=== PATIENT | female | born 2000 | race Caucasian/White ===

== ENCOUNTER → 2019-10-07 14:13 | Outpatient (CLI) | payer BC, SELFPAY ==
--- NOTE | 2019-10-07 14:18 | US_ITS ---
PROCEDURE: US OB TRANSVAGINAL CLINICAL INDICATION: US OB Dates Evaluate dates COMPARISON: No exams were available for comparison FINDINGS: An intrauterine gestational sac is present with a pole with a crown-rump length of 3.14cm correlating to gestational age of 10weeks 1day. heart tones are present with an FHR of 164bpm. Yolk sac is noted. There is a 2 cm right corpus luteum cyst. There is a small area of decreased echogenicity along the lower uterine segment in the subchorionic region and could represent an area of small subchorionic bleed IMPRESSION: Live IUP at 10 weeks 1 day. Possible small subchorionic bleed inferiorly Estimated due date by Ultrasound is 05/03/2020 Dictated by: Humberto Partida MD 10/07/2019 19:14 Electronically signed by Humberto Partida MD in [place] 10/07/2019 19:14
== END ==
PROVIDERS: Visit Provider Obstetrics & Gynecology
DX: O26.841 Uterine size-date discrepancy, first trimester (principal)
CPT/HCPCS: 76817

== ENCOUNTER → 2019-10-15 15:36 | Outpatient (CLI) | payer BC, SELFPAY ==
[2019-10-15 16:52] LABS: Basophils % 0.1 % (0.1-2.0); Eosinophils # 0.1 K/mm3 (0.0-0.4); Hemoglobin 11.2 g/dL (12.2-16.2); Lymphocytes # 1.8 K/mm3 (0.7-4.5); Lymphocytes % 22.8 % (10-50); Mean Corpuscular HGB Conc 33.9 g/dL (31.8-35.4); Mean Corpuscular Hemoglobin 28.1 pg (27.0-31.2); Mean Corpuscular Volume 82.8 fl (81-99); Mean Platelet Volume 7.5 fl (7.4-10.4); Monocytes # 0.4 K/mm3 (0.1-1.0); Monocytes % 5.2 % (1.7-9.3); Neutrophils # 5.5 K/mm3 (1.8-7.8); Neutrophils % 70.8 % (37.0-80.0); Platelet Count 356 K/mm3 (142-424); Red Blood Count 3.99 M/mm3 (4.20-5.40); Red Cell Distribution Width 16.2 % (11.5-17.5); White Blood Count 7.7 K/mm3 (4.8-10.8)
[2019-10-17 09:21] LABS: Rapid Plasma Reagin Ab Titer Non Reactive (NonRea<1:1)
[2019-10-17 10:13] LABS: HIV Screen 4th Generation wRfx Non Reactive (Non Reactive); Hepatitis B Surface Antigen Negative (Negative); Hepatitis C Antibody <0.1 s/co ratio (0.0-0.9)
[2019-10-18 09:27] LABS: Rubella Antibodies, IgG 1.78 index (Immune >0.99)
[2019-10-19 08:18] LABS: Chlordiazepoxide <0.1 ug/mL (0.1-0.9)
[2019-10-19 09:37] LABS: Acetone Negative % (0.000-0.010); Butalbital <1 ug/mL (1-10); Diazepam <0.1 ug/mL (0.1-0.9); Ethanol Negative % (0.000-0.010); Isopropanol Negative % (0.000-0.010); Pentobarbital <1 ug/mL (1-5)
== END ==
PROVIDERS: Visit Provider Obstetrics & Gynecology
DX: Z34.90 Encounter for supervision of normal pregnancy, unspecified, unspecified trimester (principal)
CPT/HCPCS: 36415; 80306; 85025; 86592; 86703; 86762; 86850; 87340; 87380; G0432

== ENCOUNTER → 2019-11-12 16:54 | Outpatient (CLI) | payer BC, SELFPAY ==
[2019-11-16 07:33] LABS: Neisseria gonorrhoeae, NAA Negative (Negative)
== END ==
PROVIDERS: Visit Provider Obstetrics & Gynecology
DX: Z34.90 Encounter for supervision of normal pregnancy, unspecified, unspecified trimester (principal)
CPT/HCPCS: 87491; 87591

== ENCOUNTER 2019-12-11 23:39 | Emergency (ER) | payer BC, SELFPAY ==
[2019-12-11 23:40] VITALS: BP 120/67; PULSE 92; RESP 16; TEMP 37; O2SAT 99; BMI 39.3
--- NOTE | 2019-12-11 23:56 | PC.NURSE ---
heart tones assessed with Doppler at 157bpm
--- NOTE | 2019-12-12 00:07 | HMH.EDNVD ---
ED Disposition Clinical Impression: Abdominal pain Qualifiers: Abdominal location: right upper quadrant Qualified Code(s): R10.11 - Right upper quadrant pain Qualifiers: Weeks of gestation: 20 weeks Qualified Code(s): Z3A.20 - 20 weeks gestation of Disposition: Home, Self-Care Condition on Discharge: Good Instructions: DI for Acute Abdomen Referrals: Provider,Referral, [Primary Care Provider] - - Critical Care Critical Care Time: No Attestation: On 12/11/19, the high probability of a clinically significant, sudden or life threatening deterioration of the following system(s) required my full and direct attention, intervention and personal management. The time I documented below is in addition to time spent performing reported procedures but includes the following listed in this critical care notation. Medical Decision Making - Medical Records Medical records reviewed: Yes: I reviewed the patient's medical records. - Dimas Inquiry Pt receiving controlled substance: No Vital Signs: 12/11/19 23:40 12/12/19 00:47 12/12/19 01:03 Temperature 98.6 F Temperature Source Oral Pulse Rate [Left Radial] 92 H 96 H 91 H Respiratory Rate 16 18 18 Blood Pressure [Right Arm] 120/67 124/73 123/76 Blood Pressure Mean [Right Arm] 84 90 91 Blood Pressure Source [Right Arm] Automatic Cuff Blood Pressure Position [Right Arm] Sitting 02 Sat by Pulse Oximetry 99 100 99 Oxygen Delivery Method Room Air Room Air Room Air - Lab Data Lab results reviewed: Yes: I reviewed the patient's lab results. Lab Results 12/12/19 00:00: Urine Color Yellow, Urine Appearance Clear, Urine pH 7.0, Ur Specific [place] 1.025, Urine Protein Negative, Urine Glucose (UA) Negative, Urine Ketones Negative, Urine Blood Negative, Urine Nitrate Negative, Urine Bilirubin Negative, Urine Urobilinogen 0.2, Ur Leukocyte Esterase Negative, Urine WBC Occasional, Ur Squamous Epith Cells 3-5, Urine Bacteria 1+ 12/12/19 00:00: WBC 8.2, RBC 3.79 L, Hgb 11.1 L, Hct 32.4 L, MCV 85.6, MCH 29.2, MCHC 34.1, RDW 14.9, Plt Count 410, MPV 7.2 L, Neut % (Auto) 68.1, Lymph % (Auto) 24.5, [place] % (Auto) 6.1, Eos % (Auto) 1.2, Baso % (Auto) 0.1, Neut # (Auto) 5.6, Lymph # (Auto) 2.0, [place] # (Auto) 0.5, Eos # (Auto) 0.1, Baso # (Auto) 0.0, ESR 43 H 12/12/19 00:00: Sodium 136, Potassium 3.7, Chloride 105, Carbon Dioxide 23, Anion Gap 11.7, BUN 9, Creatinine 0.50 L, Estimated Creat Clear 283, Estimated GFR 156, Est GFR ( Amer) 188, Glucose 98, Calcium 9.2, Total Bilirubin 0.3, AST 25, ALT 14, Alkaline Phosphatase 55, C-Reactive Protein 14.2 H, Total Protein 6.3, Albumin 3.3 L, Globulin 3.0, Albumin/Globulin Ratio 1.1, Amylase 62, Lipase 70 12/12/19 00:00: HCG, Quant [id number] H Result diagrams: 12/12/19 00:00 12/12/19 00:00 Orders (Tests/Meds): ED MEDICATIONS Generic Name Dose Route Start Last Admin Trade Name Freq PRN Reason Stop Dose Admin Sodium Chloride 1,000 mls @ 999 mls/hr 12/12/19 00:30 Sod Chlor 0.9% 1000ml Bag IV 12/12/19 01:30 .Q1H1M AYLA Nausea/Vomiting/Diarrhea HPI - General Chief complaint: Abdominal Pain Stated complaint: abd pain Time Seen by Provider: 12/12/19 00:07 Mode of Arrival: EMS Source of Information: Patient, EMS, Medical Record Limitations: No Limitations Description of Symptoms (Recalled from ER Triage Doc. by RN): pt c/o epigastric and RUQ pain after she consumes and food or beverage for about a week. pt was seen by Dr. Montanez for symptoms and was told it was possibly her gallbladder but MD couldnt treat it currently due to . pt also complains of a numbness sensation across her belly when she goes from a laying to sitting position. pt reports tenderness when palpating RUQ and denies any N/V/D at this time - History of Present Illness HPI Narrative: upper abd pain after eating - has had before - pt is about 5 months MD complaint: nausea, abdominal pain Onset (ago): hour(s)
[2019-12-12 00:12] LABS: Microscopic, Urine URINE MICROSCOPIC (MICROSCOPIC)
[2019-12-12 00:13] LABS: Appearance,Urine CLEAR (Clear); Basophils % 0.1 % (0.1-2.0); Bilirubin,Urine Negative (Negative); Blood, Urine Negative (Negative); Color,Urine YELLOW (Yellow); Eosinophils # 0.1 K/mm3 (0.0-0.4); Eosinophils % 1.2 % (0.1-12.0); Glucose,Urine (UA) Negative (Negative); Hematocrit 32.4 % (37.0-47.0); Hemoglobin 11.1 g/dL (12.2-16.2); Ketones,Urine Negative (Negative); Leukocyte Esterase,Urine Negative (Negative); Lymphocytes % 24.5 % (10-50); Mean Corpuscular HGB Conc 34.1 g/dL (31.8-35.4); Mean Corpuscular Hemoglobin 29.2 pg (27.0-31.2); Mean Corpuscular Volume 85.6 fl (81-99); Mean Platelet Volume 7.2 fl (7.4-10.4); Monocytes # 0.5 K/mm3 (0.1-1.0); Monocytes % 6.1 % (1.7-9.3); Neutrophils # 5.6 K/mm3 (1.8-7.8); Neutrophils % 68.1 % (37.0-80.0); Nitrate,Urine Negative (Negative); Platelet Count 410 K/mm3 (142-424); Protein,Urine Negative (Negative); Red Blood Count 3.79 M/mm3 (4.20-5.40); Red Cell Distribution Width 14.9 % (11.5-17.5); Specific Gravity, Urine 1.025 (1.005-1.030); Urobilinogen,Urine 0.2 EU/dl (0.2); White Blood Count 8.2 K/mm3 (4.8-10.8)
[2019-12-12 00:19] LABS: Alanine Aminotransferase 14 U/L (12-78); Albumin Level 3.3 g/dl (3.5-5.0); Albumin/Globulin Ratio 1.1 (1.1-1.8); Alkaline Phosphatase 55 U/L (38-126); Amylase 62 U/L (30-110); Anion Gap 11.7 mEq/L (5-15); Aspartate Amino Transferase 25 U/L (14-36); Bilirubin,Total 0.3 mg/dl (0.2-1.3); Blood Urea Nitrogen 9 mg/dl (7-17); Calcium 9.2 mg/dl (8.4-10.2); Carbon Dioxide 23 mmol/L (22.0-30.0); Chloride 105 mmol/L (98-107); Creatinine Clearance Estimated 283 mL/min (50-200); Estimated Glomerular Filt Rate 156 ml/min (>60); GFR (African American) 188 ML/MIN (>60); Glucose 98 mg/dl (74-100); Lipase 70 U/L (23-300); Potassium 3.7 mmoL/L (3.5-5.1); Sodium 136 mmol/L (136-145); Total Protein,Serum 6.3 g/dl (6.3-8.2)
[2019-12-12 00:24] LABS: Bacteria,Urine 1+ /lpf; C-Reactive Protein 14.2 mg/L (0-4); WBC,Urine Occasional #/hpf (0-3)
[2019-12-12 00:47] VITALS: BP 124/73; PULSE 96; RESP 18; O2SAT 100
[2019-12-12 00:47] LABS: Erythrocyte Sedimentation Rate 43 mm/hr (0-20)
[2019-12-12 01:03] VITALS: BP 123/76; PULSE 91; RESP 18; O2SAT 99
[2019-12-12 01:17] LABS: HCG,Quantitative 10514 mIU/ml (0-5.42)
[2019-12-12 01:50] VITALS: BP 116/73; PULSE 81; RESP 16; TEMP 36.9; O2SAT 97
== END 2019-12-12 01:54 | disposition home or self-care (01) ==
PROVIDERS: Emergency Provider Emergency Medicine
DX: R10.11 Right upper quadrant pain (principal); Z3A.20 20 weeks gestation of pregnancy
CPT/HCPCS: 80053; 81001; 82150; 83690; 84702; 85025; 85651; 86140; 96365; 99283

== ENCOUNTER → 2019-12-17 13:13 | Outpatient (CLI) | payer BC, SELFPAY ==
--- NOTE | 2019-12-17 13:13 | US_ITS ---
PROCEDURE: US OB /MATERNAL DETAIL CLINICAL INDICATION: US OB Complete Anatomy scan COMPARISON: US US OB TRANSVAGINAL from 10/07/2019 FINDINGS: There is a single live fetus present in breech presentation. heart and body motion noted. Cervix is closed and measures 4 cm transabdominal. The placenta is posterior and grade 1. Complete survey performed and was unremarkable on the submitted images as in PACS. No discrete anomalies identified on survey imaging by technologist. Active fetus. Three-vessel cord with satisfactory umbilical cord insertion. 4- chamber heart noted. Survey of brain & ventricles Unremarkable. Face and neck survey unremarkable. Diaphragm and chest views unremarkable. Abdomen: Both kidneys noted and unremarkable. Stomach noted and satisfactory. Spine: Survey of the spine satisfactory with no anomalies identified nor imaged. Both arms and legs noted. Amniotic Fluid: Adequate. Maternal adnexa: No significant findings. Measurements: Average ultrasound age 21weeks 1day. Gestational Age 20weeks 2days Estimated due date by ultrasound age 1204/27/2020. Estimated weight 408g BPD = 21weeks 3days OFD = 20weeks 4days HC = 20weeks 1day AC = 21weeks 4days FL = 21weeks 2days Growth Percentile= 91Percent% Heart Rate = 152bpm Cerebellum = 22weeks Humerus = 21weeks 3days HC/AC is 1.07 CI is 0.83 FL/BPD is 0.7 FL/AC is 0.22 IMPRESSION: Live IUP in breech presentation with an average ultrasound age 21 weeks 1 day. No obvious anomalies. All parameters correlate. Please see above for detail. Dictated by: Humberto Paritda MD 12/18/2019 06:41 Humberto Partida MD in [place] 12/18/2019 06:41
== END ==
PROVIDERS: PCP Obstetrics & Gynecology; Visit Provider Obstetrics & Gynecology
DX: Z36.0 Encounter for antenatal screening for chromosomal anomalies (principal); Z34.90 Encounter for supervision of normal pregnancy, unspecified, unspecified trimester
CPT/HCPCS: 76811

== ENCOUNTER → 2020-02-10 12:32 | Outpatient (CLI) | payer BC, SELFPAY ==
[2020-02-10 12:56] LABS: Glucose,Fasting 94 mg/dl (74-100)
[2020-02-10 14:17] LABS: Glucose 1 Hour 123 mg/dL (74-100)
== END ==
PROVIDERS: Visit Provider Obstetrics & Gynecology
DX: Z34.90 Encounter for supervision of normal pregnancy, unspecified, unspecified trimester (principal)
CPT/HCPCS: 36415; 82951

== ENCOUNTER 2020-03-18 09:55 | Emergency (ER) | payer BC, SELFPAY ==
--- NOTE | 2020-03-18 09:55 | ECG_ITS ---
APPROVED REPORT Exam: Resting ECG HR:113 bpm ECG Measurements Heart Rate 113 AXES MI 138 P 51 QRSd 78 QRS 109 QT 312 T 14 QTc 427 Conclusion Sinus tachycardia Rightward axis Borderline ECG Electronically signed by : Fransisco Godoy, 03/20/2020 19:23:10
[2020-03-18 09:58] VITALS: BP 137/76; PULSE 110; RESP 18; TEMP 36.9; O2SAT 99; BMI 41.3
--- NOTE | 2020-03-18 09:59 | HMH.EDGENADL ---
ED Disposition Clinical Impression: Qualifiers: Weeks of gestation: 33 weeks Qualified Code(s): Z3A.33 - 33 weeks gestation of Disposition: Left Against Medical Advice Condition on Discharge: Fair Time of Disposition: 10:46 - Critical Care Critical Care Time: No Attestation: On , the high probability of a clinically significant, sudden or life threatening deterioration of the following system(s) required my full and direct attention, intervention and personal management. The time I documented below is in addition to time spent performing reported procedures but includes the following listed in this critical care notation. Medical Decision Making - Dimas Inquiry Pt receiving controlled substance: No Vital Signs: 03/18/20 09:58 03/18/20 10:00 03/18/20 10:18 Temperature 98.4 F Temperature Source Oral Pulse Rate [Right Radial] 110 H 126 H 111 H Respiratory Rate 18 Blood Pressure [Right Arm] 137/76 124/77 112/71 Blood Pressure Mean [Right Arm] 96 92 84 Blood Pressure Source [Right Arm] Automatic Cuff Automatic Cuff Automatic Cuff Blood Pressure Position [Right Arm] Sitting Sitting Sitting 02 Sat by Pulse Oximetry 99 98 99 Oxygen Delivery Method Room Air Room Air Room Air 03/18/20 10:30 Temperature Temperature Source Pulse Rate [Right Radial] 123 H Respiratory Rate 28 H Blood Pressure [Right Arm] 110/74 Blood Pressure Mean [Right Arm] 86 Blood Pressure Source [Right Arm] Automatic Cuff Blood Pressure Position [Right Arm] Sitting 02 Sat by Pulse Oximetry 99 Oxygen Delivery Method Room Air Orders (Tests/Meds): ORDERS Category Date Time Status Basic Metabolic Panel Stat Lab 03/18/20 10:07 Ordered Complete Blood Count Auto Diff Stat Lab 03/18/20 10:07 Ordered Troponin I Q3H Lab 03/18/20 13:15 Ordered Troponin I Q3H Lab 03/18/20 16:15 Ordered Troponin I Stat Lab 03/18/20 10:07 Ordered UA [Urinalysis and Microscopic] Stat Lab 03/18/20 10:07 Ordered - ECG Data Tracing #1 Sinus tachycardia, no ST elevation or depression, no ectopy. Normal intervals. ECG initial impression date: 03/18/20 ECG initial impression time: 09:57 Arrhythmias present: sinus tach Medical Decision Narrative: 19yo G1 @ 33wks evaluated for chest pain shortness of breath. Differential diagnosis includes was not limited to: PE, ACS, anxiety, GERD, pneumonia. Patient is apparently a very difficult stick and refused to allow nursing to attempt blood collection any further. Patient states she would rather sign out AMA. Patient's OB called the emergency department to inform us that she was post be seen in the clinic today the patient had already spoke with the OBs office. Nursing called to inform the OBs office the patient was leaving AMA and the patient will be presenting to their office. General Adult HPI - General Stated complaint: SOA, chest pain Time Seen by Provider: 03/18/20 09:59 Mode of Arrival: EMS - History of Present Illness HPI narrative: 19yo G1 @ 33wks presents to the emergency department via EMS secondary to chest pain and shortness of breath. Patient reports has been ongoing for several days now. She reports it was worsened when she stepped outside into the cold weather. She was attempting to walk to the hospital but her pain became so great that she called EMS. She reports similar symptoms approximately 1 month ago and was told they could not find any acute cause. She denies any complications to her . She denies any past medical history prior to . She reports she used to smoke marijuana but stopped after she found out she was . She reports her boyfriend continues to smoke marijuana several times a day. She denies any other drugs or alcohol. She denies radiating pain, nausea or vomiting. She states her whole body feels tingly. - Related Data Home Medications Medication Instructions Recorded Confirmed Vit Calc,Iron,Folic
[2020-03-18 10:00] VITALS: BP 124/77; PULSE 126; O2SAT 98
--- NOTE | 2020-03-18 10:15 | PC.NURSE ---
went in to start her IV pt became upset saying the tourniquet hurt , loosened it started the IV was talking about how bad it hurt , flushed good IV left in place . called lab to come stick for labs
[2020-03-18 10:18] VITALS: BP 112/71; PULSE 111; O2SAT 99
--- NOTE | 2020-03-18 10:26 | PC.NURSE ---
heart tones 156bpm. notified.
--- NOTE | 2020-03-18 10:28 | PC.NURSE ---
Sharmin Shankar from lab came to draw patients blood. Patient refuses blood draw.
[2020-03-18 10:30] VITALS: BP 110/74; PULSE 123; RESP 28; O2SAT 99
--- NOTE | 2020-03-18 10:34 | PC.NURSE ---
pt is requesting to sign out AMA per Carol Leblanc. Both RN and attempted to talk with patient to attempt consent to treat. Patient refused multiple times.
--- NOTE | 2020-03-18 10:38 | PC.NURSE ---
lab staff comes out stating pt refusing blood work, entered room to check on pt, pt is attempting to remove her IV. Pt stating I want to leave . Pt refusing to go to OB for monitoring, pt refusing blood work. ER spoke with pt, pt continues to refuse treatment. while I was in the room with pt, other staff member states Dr. Montanez's office called, stating pt was advised to come to the office for evaluation when she called them earlier today. Notified pt that Dr. Montanez's office has called, pt reports she was supposed to go to Dr. Montanez's office but she didn't have ride to the hospital. Pt continues to refuse treatment. Advised pt that if she wished to leave AMA she should go to Dr. Montanez's office for evaluation, pt states she will. IV removed, AMA formed signed by pt.
[2020-03-18 10:40] VITALS: BP 110/74; PULSE 110; RESP 20; TEMP 36.9; O2SAT 99
--- NOTE | 2020-03-18 10:46 | PC.NURSE ---
Ely from dr hector office called prior to lab coming to stick patient requesting to know what was going on with the pt as pt had called from the ED requesting Dr Montanez come see her. Office stated pt had requested to be seen earlier and had an appointment with them if she could find a ride. Doc office notified she was getting a full workup.
--- NOTE | 2020-03-18 10:48 | PC.NURSE ---
Dr Office updated pt signed out AMA and workup was no longer being done as pt refused all care.
== END 2020-03-18 10:40 | disposition left against medical advice (07) ==
PROVIDERS: Emergency Provider Family Medicine
DX: R07.9 Chest pain, unspecified (principal); Z3A.33 33 weeks gestation of pregnancy
CPT/HCPCS: 93005; 99283

== ENCOUNTER → 2020-04-07 16:47 | Outpatient (CLI) | payer BC, SELFPAY ==
[2020-04-11 00:59] LABS: Neisseria gonorrhoeae, NAA Negative (Negative)
--- NOTE | 2020-04-13 16:15 | SW/DCPLANNER ---
Addendum entered by Celina Warren 04/14/20 10:50: I have contacted this patient and she has stated that she has an appointment with Dr Montanez on Monday. Patient has also stated that she has made an appointment with [facility] [employer] for her appointment on Monday. [facility] in [facility] (Emilie Chavarria) will also be contacting this patient to see if there are any service/begin [facility] program for this patient. Emilie will follow up with me later in the week regarding this patient. Addendum entered by Celina Warren 04/14/20 10:33: I have left a message with [facility] service to return my phone call back regarding this patient and see if assistance can be offered to this patient prior to delivery. I have also reached out to [employer]PS to discuss any advice for services/assistance prior to delivery. CPS has stated to make notes and make sure all is reported at time of delivery for this patient. I will continue to follow up with staff and patient until delivery. Original Note: I was notified from Dr Montanez office regarding concern for this patient. Sury in Dr Archer office stated that patient will generally have transportation to MD appointments but will not have transportation home. Staff have transported this patient home from appointments and patient has also used EMS services for transportation to appointments. I have called this patient today to inform her of services: [facility] [employer] and that this service will transport her to and from appointments but she must call 72 hours in advance. Patient was also agreeable for me to speak with [facility] to see if they can offer this patient any assistance/services. I will follow up with [facility] and Dr Archer office.
== END ==
PROVIDERS: Visit Provider Obstetrics & Gynecology
DX: Z34.90 Encounter for supervision of normal pregnancy, unspecified, unspecified trimester (principal)
CPT/HCPCS: 86403; 87491; 87591

== ENCOUNTER 2020-05-04 09:46 | Inpatient (IN) | payer BC, SELFPAY ==
[2020-05-04 08:46] VITALS: BP 144/89; PULSE 83; RESP 20; TEMP 37; O2SAT 99; BMI 43.4
[2020-05-04 08:58] VITALS: BP 144/89; PULSE 83; RESP 20; TEMP 37; O2SAT 99
[2020-05-04 08:58] LABS: Microscopic, Urine URINE MICROSCOPIC (MICROSCOPIC)
[2020-05-04 09:04] LABS: Appearance,Urine CLEAR (Clear); Bilirubin,Urine Negative (Negative); Blood, Urine 1+ (Negative); Color,Urine YELLOW (Yellow); Glucose,Urine (UA) Negative (Negative); Ketones,Urine TRACE (Negative); Leukocyte Esterase,Urine Negative (Negative); Nitrate,Urine Negative (Negative); PH,Urine 6.5 (5.0-8.5); Protein,Urine 1+ (Negative)
[2020-05-04 09:18] LABS: Amphetamine/Metha Screen,Urine Negative ng/ml (<1000); Barbiturates Screen,Urine Negative ng/ml (<200)
[2020-05-04 09:19] LABS: Benzodiazepines Screen,Urine Negative ng/ml (<200)
[2020-05-04 09:20] LABS: Cannabinoid Screen,Urine Negative ng/ml (<50); Cocaine Screen,Urine Negative ng/ml (<300)
[2020-05-04 09:21] LABS: Methadone Screen,Urine Negative ng/ml (<300)
[2020-05-04 09:22] LABS: Opiate Screen,Urine Negative ng/ml (<300); Phencyclidine Screen,Urine Negative ng/ml (<25)
[2020-05-04 09:34] VITALS: BP 130/84
[2020-05-04 10:26] LABS: Basophils % 0.2 % (0.1-2.0); Eosinophils # 0.1 K/mm3 (0.0-0.4); Eosinophils % 0.7 % (0.1-12.0); Hematocrit 30.4 % (37.0-47.0); Hemoglobin 9.7 g/dL (12.2-16.2); Lymphocytes # 1.8 K/mm3 (0.7-4.5); Lymphocytes % 21.6 % (10-50); Mean Corpuscular HGB Conc 31.9 g/dL (31.8-35.4); Mean Corpuscular Hemoglobin 23.4 pg (27.0-31.2); Mean Corpuscular Volume 73.2 fl (81-99); Mean Platelet Volume 7.1 fl (7.4-10.4); Monocytes # 0.5 K/mm3 (0.1-1.0); Monocytes % 5.2 % (1.7-9.3); Neutrophils # 6.1 K/mm3 (1.8-7.8); Neutrophils % 72.3 % (37.0-80.0); Platelet Count 419 K/mm3 (142-424); Red Blood Count 4.16 M/mm3 (4.20-5.40); Red Cell Distribution Width 16.2 % (11.5-17.5); White Blood Count 8.5 K/mm3 (4.8-10.8)
[2020-05-04 11:07] VITALS: BP 134/76; PULSE 75; RESP 20; TEMP 36.7; O2SAT 100
--- NOTE | 2020-05-04 11:20 | HMH.OBAPHP ---
OB - H&P: HPI Antepartum - History of Present Illness Chief complaint: vaginal bleeding History of present illness: 19 yo G1 @ 40 05/07 presented to triage with complaint of vaginal bleeding no bleeding seen on pad or exam glove, but patient was having regular contractions no leakage of fluid and normal movement She was admitted with latent labor [facility] History I have reviewed the patient's past medical history: Yes Medical History: Reports:: Anxiety *Have you ever received a pneumonia vaccine?: No *Have you received a flu vaccine this season?: No Other Surgeries: No: Amputation: No Fractures: No - *Social History Smoking Status: Never smoker Alcohol Intake: never Substance Use Type: former substance user, marijuana *Occupational Status:: unemployed *Travel in the last 8 weeks: None - Psychiatric History Pschychiatric History:: Reports:: Anxiety Family Hx:: No significant family history Para: 0 Review of Systems - Review of Systems Review of systems:: pertinent systems reviewed and negative unless documented below - Constitutional Denies chills, Denies fever(s) - *Genitourinary Reports abnormal vaginal bleeding Meds Home Medications Medication Instructions Recorded Confirmed Type Vit Calc,Iron,Folic [Kpn] 1 tab PO DAILY 03/18/20 05/04/20 History Allergies Allergy/AdvReac Type Severity Reaction Status Date / Time No Known Allergies Allergy Verified 04/30/20 13:20 OB - H&P: Exam - Physical Exam Vital signs: Temp Pulse Resp BP Pulse Ox 98.1 F 75 20 134/76 100 05/04/20 11:07 05/04/20 11:07 05/04/20 11:07 05/04/20 11:07 05/04/20 11:07 - Constitutional no acute distress - Routine HEENT Exam Head: Present: normocephalic, atraumatic Eye: Absent: conjunctival icterus ENT: Present: mucous membranes moist - Routine Neck Exam Present: supple - Routine Respiratory Exam Present: CTA bilaterally. Absent: respiratory distress - Routine Cardiovascular Exam Present: RRR - Routine Abdominal Exam Present: soft. Absent: tenderness, distended - Routine Exam Comments: cervix 50/-3 - Routine Extremities Exam Present: edema (1+) - Routine Skin Exam Absent: rash - Routine Neurological Exam Present: alert, oriented X3 - Routine Psychiatric Exam Present: normal affect OB - Results - Labs Labs: Short CBC 05/04/20 Range/Units 10:01 WBC 8.5 (4.8-10.8) K/mm3 Hgb 9.7 L (12.2-16.2) g/dL Hct 30.4 L (37.0-47.0) % Plt Count 419 (142-424) K/mm3 Urine 05/04/20 Range/Units 08:45 Urine Color Yellow (Yellow) Urine Appearance Clear (Clear) Urine pH 6.5 (5.0-8.5) Ur Specific [place] 1.020 (1.005-1.030) Urine Protein 1+ (Negative) Urine Glucose (UA) Negative (Negative) OB - A/P Antepartum (1) 40 weeks gestation of Status: Acute (2) Active labor at term Status: Acute (3) Anemia affecting Status: Acute - Additional Plan Additional Information:: Admitted for labor Pitocin or prostaglandin augmentation as needed Continuous monitoring
[2020-05-04 11:22] LABS: Coronavirus 19 IgG Antibody Negative (Negative); Coronavirus 19 IgM Antibody Negative (Negative)
[2020-05-04 16:00] VITALS: BP 130/69; PULSE 98; RESP 20; TEMP 36.7; O2SAT 99
--- NOTE | 2020-05-04 17:25 | HMH.LABNOT ---
Labor Note - Subjective: Date: 05/04/20 Time: 17:25 regular contraction - Objective: NST:: Reactive Contractions:: every 4-5 minutes Cervical Dilation:: 1 Effacement:: 50% Station: -2 Membranes: intact - Fetus: Monitoring?: Yes monitoring type:: External - Assessment: Patient Problems: All Active Problems Active labor at term (Acute) Anemia affecting (Acute) 40 weeks gestation of (Acute) Abdominal pain (Acute) ASCUS with positive high risk HPV (Acute) Chlamydia infection affecting (Acute) (Acute) Comment:: Latent labor, with limited progress on pitocin Medication stopped to allow uterus to rest She will be given dinner and shower, and switch to prostaglandin ripening tonight with cervidil Resume pitocin augmentation tomorrow status reassuring; continue external monitoring
[2020-05-04 20:00] VITALS: BP 131/82; PULSE 78; RESP 18; TEMP 36.7
[2020-05-05] VITALS (29 sets, daily range): BP systolic 115–155; BP diastolic 65–99; PULSE 62–102; RESP 12–24; TEMP 36.4–36.8; O2SAT 98–100
--- NOTE | 2020-05-05 08:04 | P.PN_ITS ---
[facility] Anesthesia Checklist - Patient Identification Patient Identification: Arm Band - Structural Data Admitted From: Inpatient Planned Operative Procedure/s: labor epidural Consent for Planned Operative Procedure(s) Verified: Yes Verified Documents: Surgical Consent, History and Physical - NPO Status Verified Time NPO: 00:00 - Additional verifications Anesthesia Reactions: No - Airway Assessment C-Spine Mobility Assessed: Yes TMJ Mobility Assessed: Yes Dentition: Good Dentition - Neurological Assessment Level of Consciousness: Awake, Alert - Anesthesia Plan Anesthesia Risk discussed: Yes Anesthesia Plan: Verified ASA Class: II Anesthesia Type: Epidural [facility] History I have reviewed the patient's past medical history: Yes Medical History: Reports:: Anxiety *Have you ever received a pneumonia vaccine?: No *Have you received a flu vaccine this season?: No Anesthesia experience/problems:: nac Other Surgeries: No: Amputation: No Fractures: No - *Social History Smoking Status: Never smoker Alcohol Intake: never Substance Use Type: former substance user, marijuana *Occupational Status:: unemployed *Travel in the last 8 weeks: None - Psychiatric History Pschychiatric History:: Reports:: Anxiety Family Hx:: No significant family history Para: 0
[2020-05-05 09:53] LABS: Microscopic, Urine URINE MICROSCOPIC (MICROSCOPIC)
--- NOTE | 2020-05-05 09:54 | HMH.LABNOT ---
Labor Note - Subjective: Date: 05/05/20 Time: 09:54 Comment:: regular contractions Spontaneous rupture of membranes approximately 4:30am; thin meconium noted s/p epidural and comfortable - Objective: NST:: Reactive Contractions:: every 2-3 minutes Cervical Dilation:: 3-4 Effacement:: 70% Station: -2 Membranes: spontaneously ruptured - Fetus: monitoring type:: Internal Comment:: IUPC and FSE placed without complication - Assessment: Patient Problems: All Active Problems Active labor at term (Acute) Anemia affecting (Acute) 40 weeks gestation of (Acute) Abdominal pain (Acute) ASCUS with positive high risk HPV (Acute) Chlamydia infection affecting (Acute) (Acute) - Plan: Comment:: Internal monitors placed No cervical change in past 2 hours; will continue to monitor Continue pitocin augmentation Continuous monitoring
[2020-05-05 10:41] LABS: Appearance,Urine CLEAR (Clear); Blood, Urine Negative (Negative); Color,Urine DK YELLOW (Yellow); Glucose,Urine (UA) Negative (Negative); Ketones,Urine Negative (Negative); Leukocyte Esterase,Urine Negative (Negative); Nitrate,Urine Negative (Negative); Protein,Urine TRACE (Negative)
[2020-05-05 11:38] LABS: Bilirubin,Urine 1+ (Negative)
[2020-05-05 11:39] LABS: RBC,Urine Occasional #/hpf (0-3); Squamous Epithelial Cell,Urine Occasional #/hpf (0-5)
--- NOTE | 2020-05-05 13:49 | P.PN_ITS ---
Labor Note - Subjective: Date: 05/05/20 Time: 13:19 Comment:: irregular pattern of contractions cervix 4cm, with no change in several hours increasing edema of cervix and caput - Objective: Cervical Dilation:: 4 Effacement:: 70% Membranes: ruptured - Fetus: monitoring type:: Internal - Assessment: Labor progressing?: No Patient Problems: All Active Problems Active labor at term (Acute) Anemia affecting (Acute) 40 weeks gestation of (Acute) Abdominal pain (Acute) ASCUS with positive high risk HPV (Acute) Chlamydia infection affecting (Acute) (Acute) Comment:: Failure to progress in labor--only 1cm cervical microsoft exchange administrator 6 hours Recommend proceed with primary CS Patient and FOB advised and all questions answered Will proceed to OR
[2020-05-05 14:34] LABS: Cord Blood PH 7.25 (7.35-7.45)
--- NOTE | 2020-05-05 15:21 | HMH.ANESI ---
[facility] Anesthesia Record Part I Intake, IV Amount: 1,000 Estimated blood loss (mL): 1,000 Urine output (mL): 250 Blood Pressure: 123/76 SaO2: 100 Pulse Rate: 77 Respiratory Rate: 12 Temperature: 97.6 F Patient is:: Awake, Stable Stable to PACU at:: 15:20
[2020-05-05 16:34] LABS: Hemoglobin 9.3 g/dL (12.2-16.2)
--- NOTE | 2020-05-05 17:12 | HMH.OPNOTE ---
Date of procedure: 05/05/20 Pre-op Diagnosis:: 1. 40 2/7 weeks gestation 2. Meconium stained amniotic fluid 3. Failure to progress in labor Post-op Diagnosis:: same plus uterine atony Procedure performed:: Primary low transverse c section Surgeon:: Lucia Montanez MD RAILROAD TRACK MECHANIC:: Jarrell Yessy Anesthesia: GETA Estimated blood loss (mL): 1,000 Operative findings:: uterine atony post-delivery liveborn male with apgars of 5 (1min), 7(5 min) and 8 (10 min) Operative note:: The patient was taken to the OR and spinal was administered without difficulty. She was prepped and draped in normal sterile fashion. A pfannenstiel skin incision was made with the scalpel and carried down to the fascia. The fascia was incised in the midline and sharply dissected off the rectus muscles. The muscles were in the midline and the peritoneum was entered sharply and extended bluntly. The Tolu-O self retaining retractor was placed in the abdomen and a bladder flap was created. The uterus was incised in the lower uterine segment in a transverse fashion and extended bluntly. Amniotomy was performed and clear fluid noted. The infant was delivered in controlled fashion, without complication or shoulder dystocia. The infant was immediately handed to awaiting chef manager for evaluation after cord clamped and cut; apgars were 5 (1 min), 7 (5min) and 8 (10 min). Cord blood was collected and a cord segment was preserved. The placenta was manually extracted and noted to be intact. The uterus was repaired with 0-vicryl in a running/locked fashion. A second layer was placed for hemostasis. 5mU pitocin was placed IM in the uterus and a B-Moyer stitch was placed for management of uterine atony. Methergine 0.2mg IM was also administered. The peritoneum was closed with 2-0 vicryl in a running fashion. The fascia was closed with #1 vicryl in a running fashion. The subcutaneous fat was closed with 2-0 vicryl in an interrupted fashion. The skin was closed with jocelyn. The patient tolerated the procedure well. Sponge, lap, needle and instrument counts were correct x 2. She was taken to PACU awake and in stable condition. EBL: 1000 Condition: stable Disposition: PACU Specimens:: cord blood for pH Complications:: none
[2020-05-05 20:19] LABS: Hematocrit 26.7 % (37.0-47.0); Hemoglobin 8.6 g/dL (12.2-16.2)
[2020-05-06] VITALS (23 sets, daily range): BP systolic 111–135; BP diastolic 59–85; PULSE 70–102; RESP 18–20; TEMP 36.5–36.9; O2SAT 98–100
--- NOTE | 2020-05-06 08:11 | P.PN_ITS ---
[facility] Anesthesia Record Part II Discharge Time: 16:45 Destination: Obstetric PACU nurse assessment reviewed?: Yes Patient Condition:: Good Anesthesia Complications:: None Swallowing reflex intact?: Yes Cyanosis?: No Blood Pressure: 135/85 Pulse Rate: 81 Temperature: 97.7 F Mental Status: Alert & Oriented Pain level:: 0 Nausea and/or vomitting:: None Intake, IV Amount: 0
[2020-05-06 08:21] LABS: Hemoglobin 7.6 g/dL (12.2-16.2)
[2020-05-06 08:22] LABS: Hematocrit 23.7 % (37.0-47.0)
--- NOTE | 2020-05-06 10:47 | HMH.ACPN2 ---
Internal Medicine - PN: Subj *Date: 05/06/20 *Time: 10:47 Interval history: POD #1 primary CS Ambulating and tolerating regular diet Has not voided yet since catheter removed this morning Asymptomatic with [id number] anemia, but Hgb dropped from 9.7 at admission to 7.6 on POD #1 Current transfusion 2 units packed red cells with anticipation of continued blood loss via lochia Care management following for possible assistance with social issues Exam Vital signs and Labs for Last 24 Hours: Temp Pulse Resp BP Pulse Ox 97.8 F 82 18 115/61 99 05/06/20 10:41 05/06/20 10:41 05/06/20 10:41 05/06/20 10:41 05/06/20 10:41 Laboratory Results - last 24 hr 05/04/20 10:01: Blood Type O Positive, Antibody Screen Negative, Crossmatch (AHG) See Detail 05/05/20 09:15: Urine Color Dk yellow, Urine Appearance Clear, Urine pH 7.0, Ur Specific [place] 1.020, Urine Protein Trace, Urine Glucose (UA) Negative, Urine Ketones Negative, Urine Blood Negative, Urine Nitrate Negative, Urine Bilirubin 1+ A, Urine Urobilinogen 1.0, Ur Leukocyte Esterase Negative, Urine RBC Occasional, Urine WBC 3-5, Ur Squamous Epith Cells Occasional 05/05/20 14:31: Cord ABG pH 7.25 L 05/05/20 16:25: Hgb 9.3 L, Hct 29.0 L 05/05/20 20:10: Hgb 8.6 L, Hct 26.7 L 05/06/20 06:42: Hgb 7.6 L*, Hct 23.7 L* I & O for Last 24 hours: Intake & Output 05/03/20 05/04/20 05/05/20 05/06/20 11:59 11:59 11:59 11:59 Intake Total 1000 / 1000 Output Total 650 / 650 Balance 350 / 350 Weight 245 lb Narrative: CONSTITUTIONAL: no acute distress HEENT: mucous membranes moist PULMONARY: breathing unlabored without audible wheezes CV: no tachycardia or visible JVD; normal LE peripheral pulses ABD: soft, ND; appropriately tender but no rebound/guarding : fundus firm at/below umbilicus SKIN: incision well approximated with no drainage, erythema or induration EXT: 1+ edema LEs NEURO: alert/oriented, no altered mental status PSYCH: appropriate mood and demeanor without anxiety/depression Assessment and Plan (1) 40 weeks gestation of Status: Acute Category: Medical Code(s): Z3A.40 - 40 weeks gestation of (2) Active labor at term Status: Acute Category: Medical (3) Anemia affecting Status: Acute Category: Medical Code(s): O99.019 - Anemia complicating , unspecified trimester (4) Failure to progress in labor Status: Acute Category: Medical Code(s): O62.2 - Other uterine inertia (5) Thick meconium stained amniotic fluid Status: Acute Category: Medical Code(s): P96.83 - Meconium staining (6) Delivery by section Status: Acute Category: Surgical (7) Anemia associated with acute blood loss Status: Acute Category: Medical Code(s): D62 - Acute posthemorrhagic anemia - Assessment and plan all Dx Assessment and Plan for all problems:: Routine postop care H/H will be repeated after transfusion complete Care management will continue to follow
--- NOTE | 2020-05-06 11:10 | SW/DCPLANNER ---
Addendum entered by Reny Craft 05/08/20 09:42: DATA SYSTEMS MANAGER, LIYAH JO CAME AND SAW PATIENT AND WROTE A PREVENTION PLAN... SHE CAN TAKE THE HOME BUT WILL FOLLOW HER POST HOSPITAL STAY...SHE STATED HER BOYFRIEND IS GETTING A NEW CAR SEAT AND WILL BRING IT WHEN HE GETS OFF WORK AND WILL BRING IT TO THE HOSPITAL WHEN THEY ARE READY TO LEAVE.. Addendum entered by Reny Craft 05/07/20 15:20: CASE WAS ACCEPTED BY [facility] AND SOMEONE WILL BE HERE TO SEE PATIENT PRIOR TO DISCHARGE.. I HAVE SHARED THIS WITH THE NURSE CARING FOR PATIENT... Addendum entered by Reny Craft 05/07/20 13:03: MADE A CALL TO [facility] AND SPOKE WITH YARA GAVE PATIENT INFORMATION AN ID# [id number].... WILL FOLLOW BACK UP TO SEE IF IT MEETS CRITERIA FOR INVESTIGATION... Addendum entered by Reny Craft 05/07/20 06:38: APPT WITH [facility] HAS BEEN SET UP WITH PATIENT BEING TOLD SHE HAS TO TAKE SOME FORM OF VERIFICATION IN SUCH FOOT PRINTS.. [facility] [employer] WITH HANDS WAS ALSO NOTIFIED AND VOICE MESSAGE WAS LEFT TO EVALUATE FOR HANDS PROGRAM PER NU..IT WAS BROUGHT TO MY ATTENTION YESTERDAY THAT SHE ONLY HELD INFANT ONE TIME YESTERDAY.. A REPORT WILL BE MADE TO [facility] FOR INVESTIGATION FOR THE HOME SITUATION AND THE CAPABILITY TO CARE FOR HER BABY... BABY'S FATHER HAS BEEN AT BEDSIDE BUT NOT SURE THE INTERACTION HE HAS WILL MAKE A REFERRAL THIS MORNING... Original Note: RECEIVED REFERRAL FOR THIS PATIENT PER PHYSICIAN REQUEST... I WENT IN THIS MORNING TO SEE PATIENT, SIGNIFICANT OTHER AND . DR ARMSTRONG AND NURSE WERE ALSO AT BEDSIDE.. I ASKED PATIENT IF SHE HAD EVERYTHING SHE NEEDED TO TAKE THE INFANT HOME AND SHE STATED SHE DOES.... WE DISCUSSED TRANSPORTATION AND SHE SAID HER BOYFRIENDS SISTER HAS A CAR.. HE SPOKE UP AND SAID HIS MOTHER HAS A CAR ALSO AND SHE TAKES ME TO WORK.. I ASKED ABOUT A CAR SEAT AND SHE SAID SHE HAS ONE.. I TOLD HER THAT [employer]SP[employer] WAS AVAILABLE AND SHE WAS GIVEN HER THE PHONE NUMBER, I EXPLAINED TO HER THAT FOR NON EMERGENCY TRANSPORTATION SHE WOULD HAVE TO SCHEDULE 72 HOURS IN ADVANCE,NOT SURE IF THEY WILL TRANSPORT INFANTS WHO REQUIRE A CAR SEAT... SHE SAID SHE WAS GIVEN THEIR PHONE NUMBER.. PATIENT CHOSE DR HYMAN FOR THE INFANTS DOCTOR AND I HAVE SENT HIM A MESSAGE TO SEE IF HE IS GOING TO FOLLOW THIS POST DISCHARGE..DR ARMSTRONG WANTS TO HAVE HANDS TO CHECK ON PATIENT TO MAKE SURE SHE IS PROPERLY CARING FOR THE INFANT AT HOME.. SHE HAS ALSO CHOSEN TO BOTTLE FEED, I EXPLAINED TO HER THAT SHE WILL NEED TO GET HER WIC ONCE SHE DISCHARGES BECAUSE SHE WILL NOT HAVE ANY FORMULA. I ASKED DR ARMSTRONG IF SHE THOUGHT A REFERRAL NEEDED TO BE CALLED INTO CENTRAL INTAKE FOR INVESTIGATION. SHE SAID WAIT AND SEE HOW SHE DOES TODAY AND TMRW AND IF SHE DOESN'T TAKE CARE OF THE BABY WE WILL NEED TO GET DATA SYSTEMS MANAGER INVOLVEMENT. WILL SEE HOW SHE DOES WITH INTERACTION TODAY AND WILL DETERMINE IF A CALL IS NECESSARY.
[2020-05-06 14:45] LABS: Hemoglobin 9.7 g/dL (12.2-16.2)
[2020-05-07] VITALS: BP 111/77; PULSE 83; RESP 18; TEMP 36.5; O2SAT 100
--- NOTE | 2020-05-07 10:31 | HMH.ACPN2 ---
Internal Medicine - PN: Subj *Date: 05/07/20 *Time: 10:31 Interval history: POD/PPD #2 s/p transfusion 2 units and doing well; Hgb 9.7 Pain control sufficient Having concerns about previous anxiety/depression returning , but does not want to start any medication she reports that she has never been treated for anxiety/depression in the past but is interested in seeing a counselor Care management has been following since delivery and helping with potential services as outpatient Exam Vital signs and Labs for Last 24 Hours: Temp Pulse Resp BP Pulse Ox 97.7 F 83 18 111/77 100 05/07/20 00:00 05/07/20 00:00 05/07/20 00:00 05/07/20 00:00 05/07/20 00:00 Laboratory Results - last 24 hr 05/04/20 10:01: Blood Type O Positive, Antibody Screen Negative, Crossmatch (AHG) See Detail 05/06/20 14:36: Hgb 9.7 L D, Hct 30.0 L I & O for Last 24 hours: Intake & Output 05/04/20 05/05/20 05/06/20 05/07/20 11:59 11:59 11:59 11:59 Intake Total 1250 / 1250 250 / 250 Output Total 900 / 900 400 / 400 Balance 350 / 350 -150 / -150 Weight 245 lb Narrative: CONSTITUTIONAL: no acute distress HEENT: mucous membranes moist PULMONARY: breathing unlabored without audible wheezes CV: no tachycardia or visible JVD; normal LE peripheral pulses ABD: soft, ND; appropriately tender but no rebound/guarding : fundus firm at/below umbilicus SKIN: incision well approximated with no drainage, erythema or induration EXT: 1+ edema LEs NEURO: alert/oriented, no altered mental status PSYCH: appropriate mood and demeanor Assessment and Plan (1) 40 weeks gestation of Status: Acute Category: Medical Code(s): Z3A.40 - 40 weeks gestation of (2) Active labor at term Status: Acute Category: Medical (3) Anemia affecting Status: Acute Category: Medical Code(s): O99.019 - Anemia complicating , unspecified trimester (4) Failure to progress in labor Status: Acute Category: Medical Code(s): O62.2 - Other uterine inertia (5) Thick meconium stained amniotic fluid Status: Acute Category: Medical Code(s): P96.83 - Meconium staining (6) Delivery by section Status: Acute Category: Surgical (7) Anemia associated with acute blood loss Status: Acute Category: Medical Code(s): D62 - Acute posthemorrhagic anemia - Assessment and plan all Dx Assessment and Plan for all problems:: Continue routine postop care PNV with FeSO4 Anticipate discharge home tomorrow
--- NOTE | 2020-05-07 13:38 | P.CONPHA_ITS ---
[facility] VTE Monitoring - Patient Demographics Admission date: 05/04/20 Report Date: 05/07/20 Time: 13:38 Allergies/Adverse Reactions: Patient Allergies No Known Allergies Allergy (Verified 04/30/20 13:20) Height: 1.6 m Weight: 111.13 kg Patient Problems: Current Active Problems Delivery by section (Acute) Anemia associated with acute blood loss (Acute) Failure to progress in labor (Acute) Thick meconium stained amniotic fluid (Acute) Active labor at term (Acute) Anemia affecting (Acute) 40 weeks gestation of (Acute) - VTE Risk Labs: VTE Related Lab Results Hgb 9.7 g/dL (12.2-16.2) L D 05/06/20 14:36 Hct 30.0 % (37.0-47.0) L 05/06/20 14:36 Plt Count 419 K/mm3 (142-424) 05/04/20 10:01 - Prophylaxis VTE Prophylaxis Ordered?: Yes Types of VTE Prophylaxis: IPCS Thigh High Location of Applied Device: Bilateral Lower Extremeties
--- NOTE | 2020-05-08 10:53 | HMH.DCSUM ---
General - General Admission date:: 05/04/20 Discharge date: 05/08/20 Hospital Course Hospital Course: Admitted at 40+ weeks in active labor Failure to progress and delivered by primary c section Postop course complicated by transfusion 2 units packed red cells and elevated score on depression screening patient reports a history of anxiety and depression, although no previous medical management for this She reports that she is interested in therapy but declines medication at this time director of medical services evalution is complete and support services have been arranged for after discharge Rhogam Administration: Not Indicated Objective Vital signs: Temp Pulse Resp BP Pulse Ox 97.7 F 83 18 111/77 100 05/07/20 00:00 05/07/20 00:00 05/07/20 00:00 05/07/20 00:00 05/07/20 00:00 Narrative: CONSTITUTIONAL: no acute distress HEENT: mucous membranes moist PULMONARY: breathing unlabored without audible wheezes CV: no tachycardia or visible JVD; normal LE peripheral pulses ABD: soft, ND; appropriately tender but no rebound/guarding : fundus firm at/below umbilicus SKIN: incision well approximated with no drainage, erythema or induration EXT: 1+ edema LEs NEURO: alert/oriented, no altered mental status PSYCH: appropriate mood and demeanor DS: Diagnosis - Discharge Diagnosis (1) 40 weeks gestation of Status: Acute (2) Active labor at term Status: Acute (3) Anemia affecting Status: Acute (4) Failure to progress in labor Status: Acute (5) Thick meconium stained amniotic fluid Status: Acute (6) Delivery by section Status: Acute (7) Anemia associated with acute blood loss Status: Acute Discharge Plan - Patient Discharge Instructions ACTIVITY: Continue current activity DIET: regular diet Patient Instructions: How to Care for a Surgical Wound, DI for Hemorrhage, Pre-eclampsia, Depression, DI for , [facility] Post Discharge Instructions, Preventing the Spread of Coronavirus Discharge Instructions - Follow up Plan Follow up with: Lucia Montanez MD [Staff Physician] - 05/22/20 11:30 am Disposition: Home, Self-Senior Care Medications: Home Medications Medication Instructions Recorded Confirmed Type Vit Calc,Iron,Folic [Kpn] 1 tab PO DAILY 03/18/20 05/04/20 History Hydromorphone HCl [Dilaudid 2mg 2 mg PO Q4HP PRN #24 tablet 05/08/20 Rx tablet] Ibuprofen [Motrin 400mg 800 mg PO Q6HP PRN #40 tab 05/08/20 Rx tablet] Prescriptions/Medication Reconciliation: New Acetaminophen [Acetaminophen 325mg tab] 650 mg PO Q4HP PRN tablet PRN Reason: Mild Pain Hydromorphone HCl [Dilaudid 2mg tablet] 2 mg PO Q4HP PRN #24 tablet PRN Reason: SEVERE PAIN Ibuprofen [Motrin 400mg tablet] 800 mg PO Q6HP PRN #40 tab PRN Reason: Mild To Moderate Pain Continued Vit Calc,Iron,Folic [Kpn] 1 tab PO DAILY - Problem Reconciliation Problems Reviewed?: Yes
--- NOTE | 2020-05-08 15:25 | HMH.BHCONS ---
*Admission Date: 05/04/20 *Reason for consult:: depression *History of present illness: Patient was interviewed at bedside. -she was in room alone with baby in his bassinet -she states that she has depression -has had for some time -but right now her anxiety is high -that her depression comes and goes -she will isolate at times; if they want her to go somewhere -but she did this before she came to [place] -she states that her depression is not the issue right now; but her anxiety is She states that she is always worried about what her family is thinking about her. 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 Laura; reached up and rocked the bassinet until he fell back to sleep. She states that all her family is in [place]. It is just her and her boyfriend. They do have their own apartment together. But he works all the time. She states that the baby was planned. Well they were living in [place], [place], with his grandmother. Had planned to get ; then there was drama. so they were going to wait. But she was already . She does not want medications. -she wants therapy. -she states that she just wants to have someone to talk to -to vent to -to help her work through everything she is trying to process on her own Denies any SI/SH/HI. -she discloses that she has had some SI before; but none since her freshman year of high school -never attempted suicide RECOMMENDATIONS: 1. Therapy referral. Will give her a list of therapist in or around [place], [place] where she lives at. That are available to her. -no medications at this time TIME IN: 1400 TIME OUT: 1440 [facility] History Medical History: Reports:: Anxiety *Have you ever received a pneumonia vaccine?: No *Have you received a flu vaccine this season?: No Anesthesia experience/problems:: nac Other Surgeries: No: Amputation: No Fractures: No - *Social History Smoking Status: Never smoker Alcohol Intake: never Substance Use Type: former substance user, marijuana *Occupational Status:: unemployed *Travel in the last 8 weeks: None - Psychiatric History Pschychiatric History:: Reports:: Anxiety Family Hx:: No significant family history Para: 0 Meds Home Medications Medication Instructions Recorded Confirmed Type Vit Calc,Iron,Folic [Kpn] 1 tab PO DAILY 03/18/20 05/04/20 History Hydromorphone HCl [Dilaudid 2mg 2 mg PO Q4HP PRN #24 tab 05/08/20 Rx tablet] Ibuprofen [Motrin 400mg 800 mg PO Q6HP PRN #40 tab 05/08/20 Rx tablet] Allergies Allergy/AdvReac Type Severity Reaction Status Date / Time No Known Allergies Allergy Verified 04/30/20 13:20 Assessment and Plan (1) 40 weeks gestation of Status: Acute Category: Medical Code(s): Z3A.40 - 40 weeks gestation of (2) Active labor at term Status: Acute Category: Medical (3) Anemia affecting Status: Acute Category: Medical Code(s): O99.019 - Anemia complicating , unspecified trimester (4) Failure to progress in labor Status: Acute Category: Medical Code(s): O62.2 - Other uterine inertia (5) Thick meconium stained amniotic fluid Status: Acute Category: Medical Code(s): P96.83 - Meconium staining (6) Delivery by section Stat
--- NOTE | 2020-05-12 11:19 | PC.NURSE ---
1110 pt present to department for staple removal. Alyssa removed, incision cleaned with 1/2 strength hydrogen peroxide and sterile water. LTV incision without any s/s infection. Steri strips applied, pt educated on surgical site infections and surgical site care, V/U.
== END 2020-05-08 17:55 | disposition home or self-care (01) | DRG 788 ==
LOC: OBOUT 09:48 → OB 09:48
PROVIDERS: Admitting Provider Obstetrics & Gynecology; Visit Provider Obstetrics & Gynecology
PROC: 10D00Z1 Extraction of Products of Conception, Low, Open Approach (ICD-10-PCS; CPT 59514; principal; 2020-05-05 14:00)
DX: O62.0 Primary inadequate contractions (principal); Z3A.40 40 weeks gestation of pregnancy; Z37.0 Single live birth; O62.2 Other uterine inertia; O99.03 Anemia complicating the puerperium; O98.819 Other maternal infectious and parasitic diseases complicating pregnancy, unspecified trimester; D64.9 Anemia, unspecified
CPT/HCPCS: 59514; 36415; 59025; 80305; 81001; 82800; 85014; 85018; 85025; 86328; 86850; 94761; C1758; G0283; J0595; P9016

== ENCOUNTER 2021-02-22 12:51 | Emergency (ER) | payer BC, SELFPAY ==
[2021-02-22 15:03] VITALS: BP 0/0; PULSE 0; RESP 0; TEMP -17.7; TEMP 0
== END 2021-02-22 15:06 | disposition left against medical advice (07) ==
LOC: UTC 12:53
PROVIDERS: Emergency Provider Nurse Practitioner Family
DX: Z53.21 Procedure and treatment not carried out due to patient leaving prior to being seen by health care provider (principal)